=== PATIENT | female | born 1960 | race Two or more races ===

== ENCOUNTER 2019-04-25 12:44 | Outpatient (CLI) | payer OTHER ==
[~2019-04-25 12:44] MED LIST: ESTROPIPATE1.5 MG PO; LIPITOR20 MG PO; MONOPRIL20 MG PO; TOPROL XL50 MG PO
== END 2019-04-25 12:50 | disposition home or self-care (01) ==
LOC: LAB 12:44
DX: N20.0 Calculus of kidney (principal)

== ENCOUNTER 2019-05-03 09:17 | Outpatient (CLI) | payer OTHER | END 2019-05-03 09:26 | disposition home or self-care (01) | LOC: MRI 09:17 | DX: M54.2 Cervicalgia (principal); G54.8 Other nerve root and plexus disorders; G56.91 Unspecified mononeuropathy of right upper limb; E03.8 Other specified hypothyroidism; E11.9 Type 2 diabetes mellitus without complications | CPT/HCPCS: 72149 ==

== ENCOUNTER 2022-09-20 05:30 | Day surgery (SDC) | payer OTHER ==
[~2022-09-20] VITALS: Ht 167.6 cm; Wt 75.3 kg
[~2022-09-20 05:30] MED LIST changes: +DUI500 PO; +FOSINOPRIL SODI40 MG PO; +HYDROCHLOROTHIA25 MG PO; +INTEGRA PLUS C1 EACH PO; +MELATONIN10 MG PO; +NORVASC5 MG PO; +OXYC1TAB9 PO; +PROTONIX40 MG PO; +SIMVASTA PO; +SULINDAC200 MG PO; +XARELTO10 MG PO
[2022-09-20] MEDS ORDERED: CEFADROXIL500 MG PO (09:55)
[2022-09-20] MEDS ORDERED: OXYC1TAB9 PO (09:55)
== END 2022-09-20 12:00 | disposition home or self-care (01) ==
LOC: CIR.AMB 05:30
PROVIDERS: ATTEND Orthopaedic Surgery Sports Medicine
DX: M24.561 Contracture, right knee (principal); Z96.651 Presence of right artificial knee joint; Z88.2 Allergy status to sulfonamides; I10 Essential (primary) hypertension; E16.2 Hypoglycemia, unspecified; Z20.822 Contact with and (suspected) exposure to COVID-19